=== PATIENT | female | born 1945 | race Hispanic/Latino ===

== ENCOUNTER 2018-08-07 08:26 | Day surgery (SDC) | payer MEDICARE ==
[2018-08-02 16:57] VITALS: BMI 22.1
[2018-08-07] MEDS ORDERED: Propofol 10 mg/ml Inj (20 ML) ONE (10:04)
[2018-08-07] MEDS ORDERED: Sodium Chloride 0.9% 1,000 ML IV SCH (11:15)
[2018-08-07 11:43] VITALS: RESP 16
[2018-08-07 16:34] VITALS: BP 126/69; PULSE 52; TEMP 98.5; O2SAT 98
== END 2018-08-07 13:10 | disposition home or self-care (01) ==
LOC: ENDO 08:26
PROVIDERS: ATTEND Internal Medicine Gastroenterology
DX: K21.9 Gastro-esophageal reflux disease without esophagitis (principal); K31.7 Polyp of stomach and duodenum; K31.9 Disease of stomach and duodenum, unspecified; K29.80 Duodenitis without bleeding; K59.00 Constipation, unspecified; K57.30 Diverticulosis of large intestine without perforation or abscess without bleeding; D12.2 Benign neoplasm of ascending colon; D12.8 Benign neoplasm of rectum; K64.1 Second degree hemorrhoids
CPT/HCPCS: 43239; 45381; 45385; 88305; 88312; 88342; J2001; J2704; J3010; J7030; J7040

== ENCOUNTER 2018-09-20 11:30 | Emergency (ER) | payer MEDICARE ==
[2018-09-20 11:31] VITALS: BMI 22.1
--- NOTE | 2018-09-20 12:22 | ED PDOC ---
Arrival/HPI <Bhavesh Barker - Last Filed: 09/20/18 13:13> - General Historian: Patient - History of Present Illness Narrative History of Present Illness (Text): 09/20/18 12:30 Patient is a 73 yo female with no known past medical history who presents with generalized body aches and cough. Patient states that these symptoms started about 4 days ago, and she saw her PMD who gave her a variety of medications. Patient can remember taking erythromycin, prednisone, and cough syrup with codeine. She states none of these have helped and now she feels worse. She stopped taking the medications yesterday. She also is endorsing nausea; denies vomiting, denies diarrhea. Her cough in nonproductive. She denies SOB and chest pain. She is a smoker. She denies fevers and chills. She denies sick contacts. Time/Duration: < week Symptom Onset: Gradual Symptom Course: Worsening Quality: Aching <Stacey Jorge - Last Filed: 09/20/18 15:19> - General Chief Complaint: Flu-like Symptoms Time Seen by Provider: 09/20/18 11:39 Past Medical History - Provider Review Nursing Documentation Reviewed: Yes Primary Care Provider: Teressa Wolfe - Past History Past History: No Previous - Infectious Disease Hx of Infectious Diseases: None - Tetanus Immunization Tetanus Immunization: Unknown - Cardiac Hx Cardiac Disorders: Yes - Pulmonary Hx Respiratory Disorders: No - Neurological Hx Neurological Disorder: No - HEENT Hx HEENT Disorder: Yes Hx Sinusitis: Yes - Renal Hx Renal Disorder: No - Endocrine/Metabolic Hx Endocrine Disorders: No - Hematological/Oncological Hx Blood Disorders: No - Integumentary Hx Dermatological Disorder: No - Musculoskeletal/Rheumatological Hx Musculoskeletal Disorders: No - Gastrointestinal Hx Gastrointestinal Disorders: No - Genitourinary/Gynecological Hx Genitourinary Disorders: Yes Other/Comment: ENDOMETRIOSIS - Psychiatric Hx Psychophysiologic Disorder: No Hx Substance Use: No - Surgical History Hx Section: Yes - Anesthesia Hx Anesthesia Reactions: No Hx Malignant Hyperthermia: No - Suicidal Assessment Feels Threatened In Home Enviroment: No <Stacey Jorge - Last Filed: 09/20/18 15:19> Family/Social History - Physician Review Nursing Documentation Reviewed: Yes Family/Social History: Unknown Family HX Smoking Status: Former Smoker Hx Alcohol Use: No Hx Substance Use: No <Stacey Jorge - Last Filed: 09/20/18 15:19> Allergies/Home Meds <Bhavesh Barker - Last Filed: 09/20/18 13:13> <Stacey Jorge - Last Filed: 09/20/18 15:19> Allergies/Adverse Reactions: Allergies No Known Allergies Allergy (Verified 09/20/18 11:48) Home Medications: Home Meds Medication Instructions Recorded Confirmed Ascorbic Acid [Vitamin C with Mary 500 mg PO DAILY 08/02/18 08/07/18 Hips] Multivitamin [Multivitamins] 1 each PO DAILY 08/02/18 08/07/18 Simvastatin [Zocor] 20 mg PO DAILY 08/02/18 08/07/18 Omeprazole 20 mg PO DAILY 08/07/18 08/07/18 Review of Systems - Review of Systems Constitutional: Fatigue. absent: Fevers, Night Sweats Eyes: absent: Vision Changes ENT: absent: Hearing Changes Respiratory: Cough. absent: SOB, Sputum, Wheezing Cardiovascular: absent: Chest Pain, Palpitations, Edema Gastrointestinal: Nausea. absent: Abdominal Pain, Diarrhea, Vomiting Genitourinary Female: absent: Dysuria, Hematuria Musculoskeletal: Myalgias Skin: absent: Rash, Pruritis, Skin Lesions Neurological: Dizziness. absent: Headache Endocrine: absent: Diaphoresis Hemo/Lymphatic: absent: Adenopathy <Stacey Jorge - Last Filed: 09/20/18 15:19> Physical Exam Vital Signs Temp Pulse Resp BP Pulse Ox 09/20/18 11:48 98.5 F 69 16 110/72 94 L <Bhavesh Barker - Last Filed: 09/20/18 13:13> Vital Signs Temp Pulse Resp BP Pulse Ox 09/20/18 11:48 98.5 F 69 16 110/72 94 L Temperature: Afebrile Blood Pressure: Normal Pulse: Regular Respiratory Rate: Normal Appearance: Positive for: Non-Toxic Pain Distress: None Mental Status: Positive for: Alert and Oriented X 3 - Systems Exam Head: Present: Atraumatic, Normocephalic Pupils: Present: PERRL Extroacular Muscles: Present: EOMI Conjunctiva: Present: Normal Mouth: Present: Dry Pharnyx: No: ERYTHEMA, EXUDATE Neck: Present: Normal Range of Motion. No: Lymphadenopathy Respiratory/Chest: Present: Clear to Auscultation, Good Air Exchange Cardiovascular: Present: Regular Rate and Rhythm, Normal S1, S2 Abdomen: No: Tenderness, Distention Back: Present: Normal Inspection Lower Extremity: Present: Normal Inspection. No: Edema Neurological: Present: GCS=15, CN II-XII Intact, Speech Normal Skin: Present: Warm, Dry, Normal Color Lymphatic: No: Cervical Adenopathy Psychiatric: Present: Alert, Oriented x 3, Normal Insight, Normal Concentration <Stacey Jorge - Last Filed: 09/20/18 15:19> Medical Decision Making ED Course and Treatment: 09/20/18 13:13 Patient seen and examined with resident. Patient is a 73 year old F complaining of generalized backaches and cough. No abdominal tenderness on exam. - Medication Orders Current Medication Orders: Sodium Chloride (Sodium Chloride 0.9%) 1,000 mls @ 999 mls/hr IV .Q1H1M STA Stop: 09/20/18 13:30 Last Admin: 09/20/18 12:42 Dose: 999 mls/hr eMAR Start Stop Document 09/20/18 12:42 [place] (Rec: 09/20/18 12:43 [place] [facility] Intravenous Solution Start Date 09/20/18 Start Time 12:43 End Date 09/20/18 End time 13:44 Total Infusion Time 61 Discontinued Medications Benzonatate (Tessalon Perles) 100 mg PO STAT STA Stop: 09/20/18 12:33 Last Admin: 09/20/18 12:42 Dose: 100 mg Ibuprofen (Motrin Tab) 600 mg PO STAT STA Stop: 09/20/18 12:30 Last Admin: 09/20/18 12:42 Dose: 600 mg MAR Pain/Vitals Document 09/20/18 12:42 [place] (Rec: 09/20/18 12:42 [place] [facility] Pain Reassessment Is This A Pain ReAssessment? No Sleep Is patient sleeping during reassessment? No Presence of Pain Presence of Pain Yes Ondansetron HCl (Zofran Tab) 4 mg PO STAT STA Stop: 09/20/18 12:30 Last Admin: 09/20/18 12:42 Dose: 4 mg <Bhavesh Barker - Last Filed: 09/20/18 13:13> ED Course and Treatment: 09/20/18 12:38 Labs, rapid flu IVF Motrin, Zoan, Ade salazar 09/20/18 14:22 Re-evaluated patient. She states she is feeling better. 09/20/18 15:19 Re-examined patient. Informed her of lab results and prescriptions. patient agreeable for discharge home, and she will follow-up with her PMD. Re-evaluation Time: 14:22 Reassessment Condition: Re-examined, Improved - Lab Interpretations I have reviewed the lab results: Yes Interpretation: Abnormal lab values (UA) - RAD Interpretation Narrative RAD Interpretations (Text): 09/20/18 14:11 CXR- no active disease Radiology Orders: CXR Hydraulic Spinner: ED Physician <Stacey Jorge - Last Filed: 09/20/18 15:19> - Scribe Statement The provider has reviewed the documentation as recorded by the Scribe Marixa Castellanos All medical record entries made by the Scribe were at my direction and personally dictated by me. I have reviewed the chart and agree that the record accurately reflects my personal performance of the history, physical exam, medical decision making, and the department course for this patient. I have also personally directed, reviewed, and agree with the discharge instructions and disposition. <Bhavesh Barker - Last Filed: 09/20/18 13:13> Disposition/Present on Arrival <Bhavesh Barker - Last Filed: 09/20/18 13:13> - Present on Arrival Any Indicators Present on Arrival: No History of DVT/PE: No History of Uncontrolled Diabetes: No Urinary Catheter: No History of Decub. Ulcer: No History Surgical Site Infection Following: None - Disposition Have Diagnosis and Disposition been Completed?: Yes Disposition Time: 12:39 Patient Plan: Discharge <Stacey Jorge - Last Filed: 09/20/18 15:19> - Disposition Diagnosis: Viral syndrome, UTI (urinary tract infection) Disposition: HOME/ ROUTINE Patient Problems: Current Active Problems Problem Status Onset Viral syndrome Acute Condition: FAIR Discharge Instructions (ExitCare): Viral Syndrome (DC), Urinary Tract Infections in Adults Print Language: DANISH Additional Instructions: HOLLIE NARVAEZ, thank you for letting us take care of you today. Your provider was Bhavesh Barker MD and you were treated for viral illness. The emergency medical care you received today was directed at your acute symptoms. If you were prescribed any medication, please fill it and take as directed. It may take several days for your symptoms to resolve. Return to the Emergency Department if your symptoms worsen, do not improve, or if you have any other problems. Please contact your doctor or call one of the physicians/clinics you have been referred to that are listed on the Patient Visit Information form that is included in your discharge packet. Bring any paperwork you were given at discharge with you along with any medications you are taking to your follow up visit. Our treatment cannot replace ongoing medical care by a primary care provider outside of the emergency department. Thank you for allowing the [email or web address] team to be part of your care today. You may take Tylenol or Motrin for generalized body aches. Take Tessalon perles up to three times a day as needed for cough. Take Levaquin 750 mg daily for a total of 5 days for UTI. Follow-up with your primary care physician within 1 week. If you had a blood, urine, or wound culture: It will take several days for the results, if any change in treatment is needed we will contact you. Prescriptions: Benzonatate [Tessalon Perles] 100 mg PO TID PRN #9 sgl PRN Reason: Cough levoFLOXacin [Levaquin] 750 mg PO DAILY #5 tab Ondansetron [Zofran] 4 mg PO Q8H PRN #9 tab PRN Reason: Nausea/Vomiting Referrals: Teressa Wolfe MD [Family Provider] - Follow up with primary Forms: [employer] (Uzbek)
[2018-09-20] MEDS ORDERED: Sodium Chloride 0.9% 1,000 ML IV STA (12:30)
[2018-09-20 13:28] VITALS: RESP 18; O2SAT 100
[2018-09-20 13:45] LABS: BASO # 0.01 K/mm3 (0.0-2.0); BASO % 0.1 % (0.0-3.0); HEMOGLOBIN 15.2 g/dL (12.0-16.0); LYMPH # 0.9 (1.2-3.4); LYMPH % 10.1 % (22.0-35.0); MEAN CELL VOLUME 95.9 fl (80.0-105.0); MEAN CORPUSCULAR HEMOGLOBIN 31.5 pg (25.0-35.0); MEAN CORPUSCULAR HGB CONC 32.8 g/dl (31.0-37.0); MONO # 1.1 (0.1-0.6); MONO % 11.5 % (1.0-6.0); RBC 4.83 10^6/uL (3.5-6.1); RED CELL DISTRIBUTION WIDTH 13.9 % (11.5-14.5); WHITE BLOOD COUNT 9.3 10^3/uL (4.5-11.0)
[2018-09-20 14:13] LABS: ALB/GLOB RATIO 1.2 (1.1-1.8); ALBUMIN 4.1 g/dL (3.0-4.8); ALT/SGPT 18 U/L (7-56); AST/SGOT 27 U/L (14-36); BLOOD UREA NITROGEN 17 mg/dL (7-21); CALCIUM 9.3 mg/dL (8.4-10.5); GFR NON-AFRICAN AMERICAN > 60
--- NOTE | 2018-09-20 14:36 | RAD ---
Date of service: 09/20/2018 HISTORY: cough COMPARISON: 01/11/2017 FINDINGS: LUNGS: No active pulmonary disease. PLEURA: No significant pleural effusion identified, no pneumothorax apparent. CARDIOVASCULAR: No atherosclerotic calcification present Normal. OSSEOUS STRUCTURES: No significant abnormalities. VISUALIZED UPPER ABDOMEN: Normal. OTHER FINDINGS: None. IMPRESSION: No active disease. No significant interval change compared to the prior examination(s).
[2018-09-20 15:07] LABS: PH,URINE 6.5 (4.7-8.0); URINE BILIRUBIN NEGATIVE (NEGATIVE); URINE BLOOD NEGATIVE (NEGATIVE); URINE GLUCOSE (UA) NEGATIVE (NEGATIVE); URINE LEUKOCYTE ESTERASE TRACE Leu/uL (NEGATIVE); URINE PROTEIN NEGATIVE mg/dL (<30 mg/dL); URINE UROBILINOGEN 0.2 E.U./dL (<1 E.U./dL)
[2018-09-20 15:08] VITALS: BP 110/68; PULSE 68; TEMP 98.1
[2018-09-20 15:09] LABS: URINE APPEARANCE CLEAR (CLEAR); URINE COLOR YELLOW (YELLOW)
[2018-09-20 15:11] LABS: URINE AMORPHOUS SEDIMENT FEW /hpf; URINE BACTERIA MANY /hpf; URINE RBC 0 - 2 /hpf (0-2)
== END 2018-09-20 15:28 | disposition home or self-care (01) ==
LOC: ED 11:30
DX: B34.9 Viral infection, unspecified (principal); N39.0 Urinary tract infection, site not specified
CPT/HCPCS: 71045; 80053; 81001; 83735; 84100; 85025; 87086; 87804; 96360; 99284; J7030